=== PATIENT | female | born 1945 | race African-American/Black ===

== ENCOUNTER 2020-12-15 11:35 | Observation (INO) | payer MEDICARE, BC ==
[2020-12-15 13:48] LABS: Bilirubin Negative (Negative); Blood, Urine Negative (Negative); Clarity Clear (Clear); Glucose, Urine (Dipstick) Normal (Negative); Ketone, Urine Negative (Negative); Leukocyte Negative Leu/uL (Negative); Nitrite Negative (Negative); Protein, Urine (Dipstick) Negative (Neg-Trace); Specific Gravity, Urine 1.011 (1.002-1.036); Urobilinogen Normal mg/dL (Less than 2); pH, Urine 7.5 (5.0-9.0)
[2020-12-15 13:50] LABS: #Basophils 0.1 thou/uL (0.0-0.2); #Eosinphils 0.1 thou/uL (0.0-0.7); #Lymphocytes 2.9 thou/uL (1.20-3.40); #Monocytes 0.8 thou/uL (0.11-0.59); #Neutrophils 5.6 thou/uL (1.40-6.50); %Basophils 0.9 % (0.0-1.0); %Eosinophils 1.3 % (0.0-10.0); %Lymphocytes 30.1 % (21.0-51.0); %Monocytes 8.5 % (0.0-10.0); %Neutrophils 59.2 % (42.0-75.0); Mean Corpuscular HGB CONC 31.3 g/dL (32.0-36.0); Mean Corpuscular Hemoglobin 23.7 pg (27.0-31.0); Mean Corpuscular Volume 75.9 fL (78.0-98.0); Mean Platelet Volume 7.5 fL (7.4-10.4); Platelet Count 636 thou/uL (130-400); RBC Distribution Width 19.6 % (11.5-14.5); Red Blood Cell (RBC) Count 2.97 mill/uL (4.20-5.40); White Blood Cell (WBC) Count 9.5 thou/uL (4.8-10.8)
[2020-12-15 14:08] LABS: ALT (SGPT) 12 U/L (8-55); AST (SGOT) 14 U/L (5-34); Alkaline Phosphatase 201 U/L (40-110); Anion Gap 15 mmol/L (10-20); BUN (Urea Nitrogen) 13 mg/dL (9.8-20.1); Bilirubin, Total 0.4 mg/dL (0.2-1.2); Calc. Creatinine Clearance 0 mL/min (70-130); Calcium 8.6 mg/dL (7.8-10.44); Carbon Dioxide 19 mmol/L (23-31); Chloride 110 mmol/L (98-107); Globulin 3.3 g/dL (2.4-3.5); Glucose 94 mg/dL (83-110); Protein, Total 7.3 g/dL (5.8-8.1); Sodium 140 mmol/L (136-145)
[2020-12-15 14:10] LABS: CK (CPK) 127 U/L (29-168); Lipase 227 U/L (8-78)
[2020-12-15] MEDS ORDERED: methylPREDNISolone Sod Succ/PF 125 MG/2 ML VIAL ONE (15:20)
[2020-12-15] MEDS ORDERED: diphenhydrAMINE 50 MG/ML VIAL ONE (15:20)
[2020-12-15] MEDS ORDERED: Famotidine/PF 20 mg/2ml Vial ONE (15:21)
[2020-12-15 20:50] LABS: Troponin I 0.014 ng/mL (< 0.028)
[2020-12-15] MEDS ORDERED: Acetaminophen 325 MG TAB PO PRN ×2 (21:45→22:00)
[2020-12-15] MEDS ORDERED: Ondansetron ODT 4 MG TAB SL PRN (21:45)
[2020-12-15] MEDS ORDERED: Ondansetron PF 4 MG/2 ML Vial IVP PRN ×2 (21:45→22:00)
[2020-12-15 22:55] VITALS: BMI 27.5
[2020-12-15 23:18] LABS: Iron 14 ug/dL (50-170); Iron Binding Capacity, Total 453 mcg/dL (265-497)
[2020-12-15] MEDS: Pantoprazole 40 MG VIAL IVP SCH (23:37)
[2020-12-16] MEDS ORDERED: Atorvastatin Calcium 40 MG TAB PO SCH ×2 (00:15→21:00)
[2020-12-16] MEDS ORDERED: Metoprolol Tartrate 25 MG TAB PO SCH (00:15)
[2020-12-16 04:58] LABS: #Lymphocytes 0.7 thou/uL (1.20-3.40); #Monocytes 0.2 thou/uL (0.11-0.59); #Neutrophils 7.9 thou/uL (1.40-6.50); %Basophils 0.4 % (0.0-1.0); %Lymphocytes 8.2 % (21.0-51.0); %Monocytes 2.3 % (0.0-10.0); %Neutrophils 89.1 % (42.0-75.0); Hemoglobin 7.2 g/dL (12.0-16.0); Mean Corpuscular HGB CONC 31.8 g/dL (32.0-36.0); Mean Corpuscular Hemoglobin 24.9 pg (27.0-31.0); Mean Corpuscular Volume 78.5 fL (78.0-98.0); Mean Platelet Volume 7.8 fL (7.4-10.4); Platelet Count 550 thou/uL (130-400); Red Blood Cell (RBC) Count 2.87 mill/uL (4.20-5.40); White Blood Cell (WBC) Count 8.9 thou/uL (4.8-10.8)
[2020-12-16 05:13] LABS: Anion Gap 13 mmol/L (10-20); BUN (Urea Nitrogen) 14 mg/dL (9.8-20.1); Calc. Creatinine Clearance 69 mL/min (70-130); Calcium 8.5 mg/dL (7.8-10.44); Carbon Dioxide 17 mmol/L (23-31); Chloride 111 mmol/L (98-107); Glucose 178 mg/dL (83-110); Potassium 4.4 mmol/L (3.5-5.1); Sodium 137 mmol/L (136-145)
[2020-12-16] MEDS: Levothyroxine Sodium 125 MCG TAB PO SCH (05:47)
[2020-12-16] MEDS: Amlodipine 10 MG TAB PO SCH (08:01)
[2020-12-16] MEDS: Metoprolol Tartrate 25 MG TAB PO SCH ×2 (08:01→21:00)
[2020-12-16] MEDS ORDERED: Pantoprazole 40 MG GRANULES PACKET PO SCH (09:00)
[2020-12-16 09:34] LABS: SARS-CoV-2 PCR by NAA Not Detected (NotDetected)
[2020-12-16] MEDS: Ferrous Sulfate 325 MG TAB PO SCH (19:47)
[2020-12-16] MEDS: Pantoprazole 40 MG VIAL IVP SCH (22:07)
[2020-12-17 04:52] LABS: #Lymphocytes 3.3 thou/uL (1.20-3.40); #Monocytes 1.3 thou/uL (0.11-0.59); #Neutrophils 15.3 thou/uL (1.40-6.50); %Basophils 0.1 % (0.0-1.0); %Eosinophils 0.2 % (0.0-10.0); %Lymphocytes 16.5 % (21.0-51.0); %Monocytes 6.3 % (0.0-10.0); %Neutrophils 76.9 % (42.0-75.0); Hemoglobin 7.6 g/dL (12.0-16.0); Mean Corpuscular HGB CONC 31.8 g/dL (32.0-36.0); Mean Corpuscular Hemoglobin 25.3 pg (27.0-31.0); Mean Corpuscular Volume 79.6 fL (78.0-98.0); Mean Platelet Volume 7.4 fL (7.4-10.4); Platelet Count 570 thou/uL (130-400); RBC Distribution Width 20.1 % (11.5-14.5); Red Blood Cell (RBC) Count 2.98 mill/uL (4.20-5.40); White Blood Cell (WBC) Count 19.9 thou/uL (4.8-10.8)
[2020-12-17 05:09] LABS: Anion Gap 12 mmol/L (10-20); BUN (Urea Nitrogen) 18 mg/dL (9.8-20.1); Calc. Creatinine Clearance 71 mL/min (70-130); Calcium 8.2 mg/dL (7.8-10.44); Carbon Dioxide 20 mmol/L (23-31); Chloride 111 mmol/L (98-107); Glucose 122 mg/dL (83-110); Potassium 3.9 mmol/L (3.5-5.1); Sodium 139 mmol/L (136-145)
[2020-12-17] MEDS: Levothyroxine Sodium 125 MCG TAB PO SCH (05:27)
[2020-12-17] MEDS ORDERED: Albuterol Sulfate 1.25 MG/3 ML NEB ONE (07:53)
[2020-12-17] MEDS ORDERED: Albuterol Sulfate 2.5 mg/3 ml Neb NEB SCH (08:30)
[2020-12-17] MEDS ORDERED: PROPOFOL 200 MG/20 ML VIAL ONE (10:18)
[2020-12-17] MEDS ORDERED: Glycopyrrolate 0.2 MG/ML 5 ML SYRINGE ONE (10:18)
[2020-12-17] MEDS ORDERED: Lidocaine 1% PF 5 ML VIAL ONE (10:18)
[2020-12-17] MEDS: Amlodipine 10 MG TAB PO SCH (11:09)
[2020-12-17] MEDS: Metoprolol Tartrate 25 MG TAB PO SCH (11:09)
[2020-12-17] MEDS: Ferrous Sulfate 325 MG TAB PO SCH (11:09)
[2020-12-17 11:11] VITALS: BP 144/63; TEMP 98.3
== END 2020-12-17 15:22 | disposition home or self-care (01) ==
LOC: ERS 11:35 → EDSTATUS 11:52 → 2NO 19:45
PROVIDERS: ADMIT Internal Medicine; ATTEND Hospitalist
PROC: 0DB98ZX Excision of Duodenum, Via Natural or Artificial Opening Endoscopic, Diagnostic (ICD-10-PCS; principal; 2020-12-17)
DX: K29.50 Unspecified chronic gastritis without bleeding (principal); B96.81 Helicobacter pylori [H. pylori] as the cause of diseases classified elsewhere; K44.9 Diaphragmatic hernia without obstruction or gangrene; K31.89 Other diseases of stomach and duodenum; D72.820 Lymphocytosis (symptomatic); D50.0 Iron deficiency anemia secondary to blood loss (chronic); I25.10 Atherosclerotic heart disease of native coronary artery without angina pectoris; I10 Essential (primary) hypertension; F17.210 Nicotine dependence, cigarettes, uncomplicated; R91.1 Solitary pulmonary nodule; Z79.02 Long term (current) use of antithrombotics/antiplatelets; Z79.82 Long term (current) use of aspirin; Z79.899 Other long term (current) drug therapy; Z85.038 Personal history of other malignant neoplasm of large intestine; Z86.73 Personal history of transient ischemic attack (TIA), and cerebral infarction without residual deficits; Z86.718 Personal history of other venous thrombosis and embolism; Z87.11 Personal history of peptic ulcer disease; Z88.0 Allergy status to penicillin; Z88.2 Allergy status to sulfonamides; Z88.5 Allergy status to narcotic agent; Z90.49 Acquired absence of other specified parts of digestive tract; Z91.010 Allergy to peanuts; Z91.018 Allergy to other foods; Z91.041 Radiographic dye allergy status; Z95.5 Presence of coronary angioplasty implant and graft; M79.605 Pain in left leg; M79.604 Pain in right leg
CPT/HCPCS: 36430; 43239; 71045; 71275; 80048 ×2; 80053; 81003; 82274; 82550; 83010; 83540; 83550; 83615; 83690; 83880; 84484 ×2; 85025 ×3; 86850; 86900; 86901; 86920; 88305; 88312; 93005; 93306; 93970; 96374; 96375 ×2; 96376; 99285; G0378 ×4; P9016 ×2; U0003; U0005; 36415; 87635; C9113; J1200; J2704; J2930; S0028